=== PATIENT | male | born 1975 | race Caucasian/White ===

== ENCOUNTER 2018-03-17 18:02 | Emergency (ER) | payer BC ==
[~2018-03-17] VITALS: Ht 180.3 cm; Wt 129.5 kg
[~2018-03-17 18:02] MED LIST: ACYCLOVIR400 MG PO; AMOXICILLIN 8751 TAB PO; GLUCOPHAGE1000 MG PO; HUMALOG MIX 50/53 ML SC; LANTUS100 U/ML; LISINOPRIL10 MG PO; METFORMIN1000 MG PO; NORCO 325 MG-51 TAB PO; NOVOLOG 100U100 U/M1 SQ; PREVACID 30MG30 M1 PO; VICTOZA6 MG/ML SC; ZESTRIL 10MG10 MG PO; ZOCOR5 MG PO; ZOFRAN 4MG T4 MG/TAB PO; ZOFRAN ODT8 MG PO
[2018-03-17 18:05] VITALS: TEMP 97.9
[2018-03-17] MEDS ORDERED: LEXAPRO 10MG10 MG PO (18:16)
[2018-03-17] MEDS ORDERED: ASPIRIN 81M81 MG/TA2 PO (18:17)
[2018-03-17 18:19] LABS: BASO # 0.1 (0.0-0.2); BASO % 0.5 % (0.0-2.0); EOS # 0.1 (0.0-0.7); EOS % 1.4 % (0-4.0); GRAN # 6.1 (1.4-6.5); GRAN % 66.4 % (42.2-75.2); HEMATOCRIT 43.1 % (42.0-52.0); HEMOGLOBIN 14.7 g/dl (13.5-18.0); MEAN CELL VOLUME 83 fl (80.0-100.0); MEAN CORPUSCULAR HEMOGLOBIN 28 pg (27.0-31.0); MEAN CORPUSCULAR HGB CONC 34 g/dl (33.0-37.0); MEAN PLATELET VOLUME 9.1 fl (7.4-10.4); MONO # 0.8 (0.1-0.6); MONO % 8.9 % (1.7-9.3); PLATELET COUNT 287 K/mm3 (130-400); RED BLOOD COUNT 5.19 M/mm3 (4.20-5.60)
[2018-03-17 18:31] LABS: ALANINE AMINOTRANSFERASE 30 U/L (21-72); ALBUMIN 4.4 gm/dL (3.5-5.0); ALKALINE PHOSPHATASE 100 U/L (50-136); ANION GAP 14 mmol/L (7-16); AST,SGOT 27 U/L (15-37); BILIRUBIN,TOTAL 0.7 mg/dL (0.0-1.0); BLOOD UREA NITROGEN 20 mg/dL (9-20); C-REACTIVE PROTEIN 0.9 mg/dL (0.0-0.9); CALCIUM 9.9 mg/dL (8.4-10.2); CARBON DIOXIDE 23 mmol/L (22-30); CHLORIDE 104 mmol/L (98-107); CREATININE, serum 0.91 mg/dL (0.66-1.25); GLUCOSE 162 mg/dL (74-106); LIPASE 24 U/L (23-300); POTASSIUM 3.9 mmol/L (3.4-5.0); SODIUM 141 mmol/L (137-145); TOTAL PROTEIN 8.3 gm/dL (6.4-8.2)
[2018-03-17 18:41] LABS: TROPONIN-I < 0.012 ng/mL (0.000-0.034)
[2018-03-17] MEDS ORDERED: PROTONIX 40MG T40 MG PO (20:56)
[2018-03-17 21:06] VITALS: BP 128/85; PULSE 85
== END 2018-03-17 21:10 | disposition home or self-care (01) ==
LOC: COL.ER 18:02
PROVIDERS: Emergency Medicine
DX: K21.9 Gastro-esophageal reflux disease without esophagitis (principal); R07.89 Other chest pain; I10 Essential (primary) hypertension; E11.9 Type 2 diabetes mellitus without complications; E78.5 Hyperlipidemia, unspecified; Z79.82 Long term (current) use of aspirin; Z79.4 Long term (current) use of insulin
CPT/HCPCS: J7030

== ENCOUNTER 2019-01-11 17:10 | Emergency (ER) | payer BC ==
[~2019-01-11] VITALS: Ht 180.3 cm; Wt 134.1 kg
[~2019-01-11 17:10] MED LIST changes: +ASPIRIN 81M81 MG/TA2 PO; +LEXAPRO 10MG10 MG PO; +PROTONIX 40MG T40 MG PO
[2019-01-11 17:55] LABS: BASO % 0.5 % (0.0-2.0); EOS # 0.1 (0.0-0.7); EOS % 1.4 % (0-4.0); GRAN # 6.2 (1.4-6.5); GRAN % 71.2 % (42.2-75.2); HEMATOCRIT 42.4 % (42.0-52.0); HEMOGLOBIN 14.3 g/dl (13.5-18.0); LYMPH # 1.7 (1.2-3.4); LYMPH % 19.4 % (20.0-51.0); MEAN CELL VOLUME 84 fl (80.0-100.0); MEAN CORPUSCULAR HEMOGLOBIN 28 pg (27.0-31.0); MEAN CORPUSCULAR HGB CONC 34 g/dl (33.0-37.0); MEAN PLATELET VOLUME 9.3 fl (7.4-10.4); MONO # 0.6 (0.1-0.6); MONO % 6.9 % (1.7-9.3); PLATELET COUNT 267 K/mm3 (130-400); RED BLOOD COUNT 5.07 M/mm3 (4.20-5.60); REDCELL DISTRIBUTION WIDTH-CV 13.2 % (11.5-14.5)
[2019-01-11 18:00] LABS: ALANINE AMINOTRANSFERASE 15 U/L (21-72); ALBUMIN 4.2 gm/dL (3.5-5.0); ALKALINE PHOSPHATASE 84 U/L (50-136); ANION GAP 11 mmol/L (7-16); AST,SGOT 22 U/L (15-37); BILIRUBIN,TOTAL 0.5 mg/dL (0.0-1.0); BLOOD UREA NITROGEN 16 mg/dL (9-20); CALCIUM 9.6 mg/dL (8.4-10.2); CARBON DIOXIDE 26 mmol/L (22-30); CHLORIDE 104 mmol/L (98-107); CREATINE KINASE 138 U/L (55-170); CREATININE, serum 0.91 (0.66-1.25); GLUCOSE 170 mg/dL (74-106); LIPASE 24 U/L (23-300); POTASSIUM 3.8 mmol/L (3.4-5.0); SODIUM 141 mmol/L (137-145); TOTAL PROTEIN 7.3 gm/dL (6.4-8.2)
[2019-01-11 18:14] LABS: TROPONIN-I < 0.012 ng/mL (0.000-0.035)
[2019-01-11 21:09] VITALS: BP 123/73; PULSE 81
== END 2019-01-11 21:22 | disposition home or self-care (01) ==
LOC: COL.ER 17:10
PROVIDERS: Emergency Medicine
DX: R07.89 Other chest pain (principal); E11.9 Type 2 diabetes mellitus without complications; Z90.89 Acquired absence of other organs; Z87.891 Personal history of nicotine dependence; Z79.4 Long term (current) use of insulin; Z79.82 Long term (current) use of aspirin
CPT/HCPCS: J7030